=== PATIENT | male | born 1945 | race Asian ===

== ENCOUNTER 2023-08-12 13:48 | Inpatient (IN) | payer MEDICARE ==
[~2023-08-12] VITALS: Ht 175.3 cm; Wt 112.5 kg
[2023-08-12 13:50] VITALS: BP_SYST 140; PULSE 113; RESP 30; TEMP 97.5; O2SAT 98
[2023-08-12 14:21] LABS: BASOPHILS # (AUTO) 0.1 K/uL (0.0-0.2); BASOPHILS % (AUTO) 0.7 % (0.0-2.0); EOSINOPHILS # (AUTO) 0.2 K/uL (0.0-0.4); EOSINOPHILS % (AUTO) 2.2 % (0.0-4.0); HEMOGLOBIN 16.3 g/dL (14.0-18.0); LYMPHOCYTES # (AUTO) 1.5 K/uL (1.0-5.5); LYMPHOCYTES % (AUTO) 18.6 % (20.5-51.5); MEAN CORPUSCULAR HEMOGLOBIN 27 pg (27-31); MEAN CORPUSCULAR HGB CONC 32 % (32-36); MEAN CORPUSCULAR VOLUME 84 fL (79.0-98.0); MONOCYTES # (AUTO) 0.2 K/uL (0.0-1.0); MONOCYTES % (AUTO) 2.2 % (1.7-9.3); NEUTROPHILS # (AUTO) 6.2 K/uL (1.8-7.7); NEUTROPHILS % (AUTO) 76.3 % (40.0-70.0); PLATELET COUNT (AUTO) 274 K/uL (130-430); RED BLOOD CELL COUNT(AUTO) 6.11 MIL/uL (4.2-6.2); RED CELL DISTRIBUTION WIDTH 19.9 % (9.0-15.0); WHITE BLOOD COUNT (AUTO) 8.1 K/uL (4.8-10.8)
[2023-08-12 14:48] LABS: ABG O2 SAT% ESTIMATE 99.4 % (94.0-100.0); BLOOD GAS BASE EXCESS -2.4 mmol/L (-3.0-3.0); BLOOD GAS HCO3 22.7 mmol/L (21.0-27.0); BLOOD GAS PCO2 40.4 mmHg (32.0-45.0); BLOOD GAS PH 7.368 (7.350-7.450); BLOOD GAS PO2 208.7 mmHg (75.0-100.0)
[2023-08-12 14:53] LABS: ALLEN'S TEST POSITIVE (P)
[2023-08-12] MEDS ORDERED: NITROGLYCERIN 1 INCH (GM) OINT. TP ONE (15:00)
[2023-08-12 15:01] LABS: INFLUENZA TYPE A Negative (NEGATIVE); INFLUENZA TYPE B NEGATIVE (NEGATIVE)
[2023-08-12 15:15] LABS: INR 1.9 (0.80-1.20); PROTHROMBIN TIME 19.5 SECS (9.5-12.5)
[2023-08-12 15:17] LABS: ANION GAP 8 (5-15); CARBON DIOXIDE 29 mmol/L (23-29); CHLORIDE 103 mmol/L (98-107); CREATININE 1.34 mg/dL (0.55-1.30); GLUCOSE 152 mg/dL (74-106); POTASSIUM 4.3 mmol/L (3.5-5.1); SODIUM SERUM 140 mmol/L (136-145); UREA NITROGEN, BLOOD 20 mg/dL (8-21)
[2023-08-12 15:33] LABS: ALANINE AMINOTRANSFERASE 29 U/L (12-78); ALBUMIN 2.4 g/dL (3.4-4.8); ASPARTATE AMINOTRANSFERASE 57 U/L (10-37); TOTAL BILIRUBIN 3.5 mg/dL (0.0-1.0); TOTAL PROTEIN, SERUM 8.5 g/dL (6.4-8.3)
[2023-08-12] MEDS ORDERED: ASPIRIN 81 MG TAB.CHEW PO ONE (15:45)
[2023-08-12] MEDS ORDERED: OMEP-268 PO (16:57)
[2023-08-12] MEDS ORDERED: OMEG100037 PO (16:57)
[2023-08-12] MEDS ORDERED: ATEN50TA PO (16:57)
[2023-08-12] MEDS ORDERED: FURO40TA5 PO (16:57)
[2023-08-12] MEDS ORDERED: LIP20 PO (16:57)
[2023-08-12] MEDS ORDERED: ONDANSETRON HCL 4 MG/2 ML VIAL IVP PRN (17:15)
[2023-08-12] MEDS ORDERED: POTASSIUM CHLORIDE 20 MEQ TAB.PRT.SR PO PRN (17:15)
[2023-08-12] MEDS ORDERED: ZOLPIDEM TARTRATE 5 MG TABLET PO PRN (17:15)
[2023-08-12] MEDS ORDERED: DOCUSATE SODIUM 100 MG CAPSULE PO PRN (17:15)
[2023-08-12] MEDS ORDERED: ACETAMINOPHEN 325 MG TABLET PO PRN (17:15)
[2023-08-12] MEDS ORDERED: MAGNESIUM SULFATE 50 ML IV PRN (17:15)
[2023-08-12] MEDS ORDERED: LORazepam 2 MG/ML VIAL IVP PRN (17:15)
[2023-08-12] MEDS ORDERED: MORPHINE 2 MG/ML INJ. SYRINGE IVP PRN ×2 (17:15)
[2023-08-12] MEDS ORDERED: MUPIROCIN 2% TOPICAL OINTMENT 22 GM NS PRN (17:15)
[2023-08-12] MEDS ORDERED: METOPROLOL TARTRATE 25 MG TABLET PO ONE (17:30)
[2023-08-12] MEDS ORDERED: WARF1TAB79 PO (17:30)
[2023-08-12] MEDS ORDERED: FUROSEMIDE 40 MG/4 ML VIAL IVP ONE (17:30)
[2023-08-12] MEDS ORDERED: WARFARIN SODIUM 1 MG TABLET PO ONE (18:30)
[2023-08-12 18:35] VITALS: BP_SYST 99; PULSE 114; RESP 20; TEMP 99.1; O2SAT 95
[2023-08-12 20:00] VITALS: BP_SYST 87; PULSE 106; RESP 22; TEMP 97.6; O2SAT 90
[2023-08-12 20:02] VITALS: O2SAT 90
[2023-08-12 20:06] VITALS: BP_SYST 97; PULSE 102; O2SAT 98
[2023-08-12] MEDS: METOPROLOL TARTRATE 25 MG TABLET PO SCH (21:00)
[2023-08-13] VITALS (11 sets, daily range): BP systolic 87–114; PULSE 73–112; RESP 18–20; TEMP 96.9–99.5; O2SAT 91–99
[2023-08-13 04:23] LABS: BASOPHILS % (AUTO) 0.1 % (0.0-2.0); EOSINOPHILS % (AUTO) 0.1 % (0.0-4.0); HEMATOCRIT 44.3 % (36-54); HEMOGLOBIN 13.9 g/dL (14.0-18.0); LYMPHOCYTES # (AUTO) 0.5 K/uL (1.0-5.5); LYMPHOCYTES % (AUTO) 3.3 % (20.5-51.5); MEAN CORPUSCULAR HEMOGLOBIN 26 pg (27-31); MEAN CORPUSCULAR HGB CONC 31 % (32-36); MEAN CORPUSCULAR VOLUME 82 fL (79.0-98.0); MONOCYTES # (AUTO) 1.2 K/uL (0.0-1.0); MONOCYTES % (AUTO) 7.4 % (1.7-9.3); NEUTROPHILS # (AUTO) 14.4 K/uL (1.8-7.7); NEUTROPHILS % (AUTO) 89.1 % (40.0-70.0); PLATELET COUNT (AUTO) 168 K/uL (130-430); RED BLOOD CELL COUNT(AUTO) 5.39 MIL/uL (4.2-6.2); RED CELL DISTRIBUTION WIDTH 19.7 % (9.0-15.0); WHITE BLOOD COUNT (AUTO) 16.1 K/uL (4.8-10.8)
[2023-08-13 04:31] LABS: ANION GAP 8 (5-15); CARBON DIOXIDE 30 mmol/L (23-29); CHLORIDE 101 mmol/L (98-107); POTASSIUM 4.6 mmol/L (3.5-5.1); SODIUM SERUM 139 mmol/L (136-145)
[2023-08-13 04:38] LABS: INR 2.5 (0.80-1.20); PROTHROMBIN TIME 24.5 SECS (9.5-12.5)
[2023-08-13 05:04] LABS: CALCIUM 8.8 mg/dL (8.4-11.0); CREATININE 1.77 mg/dL (0.55-1.30); GLUCOSE 115 mg/dL (74-106); UREA NITROGEN, BLOOD 28 mg/dL (8-21)
[2023-08-13] MEDS ORDERED: NACL 0.9% 1,000 ML IV SCH (07:00)
[2023-08-13] MEDS ORDERED: NS 500 ML IV ONE (07:00)
[2023-08-13] MEDS ORDERED: MAGNESIUM SULFATE 50 ML IV ONE (07:45)
[2023-08-13] MEDS: ATORVASTATIN 20 MG TABLET PO SCH (08:23)
[2023-08-13] MEDS: METOPROLOL TARTRATE 25 MG TABLET PO SCH (08:26)
[2023-08-13] MEDS ORDERED: FUROSEMIDE 40 MG/4 ML VIAL IVP ONE ×2 (09:00→13:30)
[2023-08-13] MEDS: FUROSEMIDE 40 MG/4 ML VIAL IVP SCH (17:38)
[2023-08-13] MEDS ORDERED: WARFARIN SODIUM 1 MG TABLET PO ONE (18:00)
[2023-08-14] VITALS (10 sets, daily range): BP systolic 94–114; PULSE 68–109; RESP 18–22; TEMP 98–99.5; O2SAT 90–97
[2023-08-14 06:01] LABS: BASOPHILS # (AUTO) 0.1 K/uL (0.0-0.2); EOSINOPHILS % (AUTO) 0.2 % (0.0-4.0); HEMATOCRIT 48.2 % (36-54); HEMOGLOBIN 15.1 g/dL (14.0-18.0); LYMPHOCYTES # (AUTO) 0.3 K/uL (1.0-5.5); LYMPHOCYTES % (AUTO) 3.1 % (20.5-51.5); MEAN CORPUSCULAR HEMOGLOBIN 26 pg (27-31); MEAN CORPUSCULAR HGB CONC 31 % (32-36); MEAN CORPUSCULAR VOLUME 83 fL (79.0-98.0); MONOCYTES # (AUTO) 0.4 K/uL (0.0-1.0); MONOCYTES % (AUTO) 4.5 % (1.7-9.3); NEUTROPHILS # (AUTO) 9.1 K/uL (1.8-7.7); NEUTROPHILS % (AUTO) 91.2 % (40.0-70.0); PLATELET COUNT (AUTO) 127 K/uL (130-430); RED BLOOD CELL COUNT(AUTO) 5.83 MIL/uL (4.2-6.2); RED CELL DISTRIBUTION WIDTH 19.3 % (9.0-15.0); WHITE BLOOD COUNT (AUTO) 9.9 K/uL (4.8-10.8)
[2023-08-14 06:31] LABS: ANION GAP 11 (5-15); CALCIUM 9.2 mg/dL (8.4-11.0); CARBON DIOXIDE 25 mmol/L (23-29); CHLORIDE 97 mmol/L (98-107); CREATININE 1.49 mg/dL (0.55-1.30); GLUCOSE 123 mg/dL (74-106); POTASSIUM 4.2 mmol/L (3.5-5.1); SODIUM SERUM 133 mmol/L (136-145); UREA NITROGEN, BLOOD 36 mg/dL (8-21)
[2023-08-14] MEDS: FUROSEMIDE 40 MG/4 ML VIAL IVP SCH ×2 (06:31→18:57)
[2023-08-14] MEDS: ATORVASTATIN 20 MG TABLET PO SCH (09:06)
[2023-08-14 09:35] LABS: INR 3.8 (0.80-1.20); PROTHROMBIN TIME 37.4 SECS (9.5-12.5)
[2023-08-14] MEDS ORDERED: WARFARIN SODIUM 1 MG TABLET PO SCH (18:00)
[2023-08-15] VITALS (12 sets, daily range): BP systolic 108–122; PULSE 91–105; RESP 16–21; TEMP 98.1–99.3; O2SAT 92–100
[2023-08-15 05:31] LABS: ANION GAP 9 (5-15); BASOPHILS % (AUTO) 0.1 % (0.0-2.0); CALCIUM 8.8 mg/dL (8.4-11.0); CARBON DIOXIDE 27 mmol/L (23-29); CHLORIDE 96 mmol/L (98-107); CREATININE 1.23 mg/dL (0.55-1.30); EOSINOPHILS % (AUTO) 0.2 % (0.0-4.0); GLUCOSE 113 mg/dL (74-106); HEMATOCRIT 42.3 % (36-54); HEMOGLOBIN 13.5 g/dL (14.0-18.0); LYMPHOCYTES # (AUTO) 0.4 K/uL (1.0-5.5); LYMPHOCYTES % (AUTO) 4.4 % (20.5-51.5); MEAN CORPUSCULAR HEMOGLOBIN 26 pg (27-31); MEAN CORPUSCULAR HGB CONC 32 % (32-36); MEAN CORPUSCULAR VOLUME 81 fL (79.0-98.0); MONOCYTES # (AUTO) 0.8 K/uL (0.0-1.0); MONOCYTES % (AUTO) 8.5 % (1.7-9.3); NEUTROPHILS % (AUTO) 86.8 % (40.0-70.0); PLATELET COUNT (AUTO) 126 K/uL (130-430); POTASSIUM 3.7 mmol/L (3.5-5.1); RED BLOOD CELL COUNT(AUTO) 5.22 MIL/uL (4.2-6.2); SODIUM SERUM 132 mmol/L (136-145); UREA NITROGEN, BLOOD 32 mg/dL (8-21); WHITE BLOOD COUNT (AUTO) 9.2 K/uL (4.8-10.8)
[2023-08-15 06:17] LABS: INR 3.9 (0.80-1.20)
[2023-08-15] MEDS: FUROSEMIDE 40 MG/4 ML VIAL IVP SCH ×2 (06:52→17:49)
[2023-08-15] MEDS: ATORVASTATIN 20 MG TABLET PO SCH (08:38)
[2023-08-16] VITALS (9 sets, daily range): BP systolic 92–109; PULSE 75–101; RESP 18–20; TEMP 97.5–98.9; O2SAT 91–100
[2023-08-16 05:33] LABS: BASOPHILS % (AUTO) 0.1 % (0.0-2.0); EOSINOPHILS # (AUTO) 0.1 K/uL (0.0-0.4); EOSINOPHILS % (AUTO) 1.4 % (0.0-4.0); HEMATOCRIT 43.9 % (36-54); HEMOGLOBIN 13.8 g/dL (14.0-18.0); LYMPHOCYTES # (AUTO) 0.5 K/uL (1.0-5.5); LYMPHOCYTES % (AUTO) 7.7 % (20.5-51.5); MEAN CORPUSCULAR HEMOGLOBIN 25 pg (27-31); MEAN CORPUSCULAR HGB CONC 31 % (32-36); MEAN CORPUSCULAR VOLUME 81 fL (79.0-98.0); MONOCYTES % (AUTO) 14.1 % (1.7-9.3); NEUTROPHILS # (AUTO) 5.3 K/uL (1.8-7.7); NEUTROPHILS % (AUTO) 76.7 % (40.0-70.0); PLATELET COUNT (AUTO) 113 K/uL (130-430); RED BLOOD CELL COUNT(AUTO) 5.44 MIL/uL (4.2-6.2); RED CELL DISTRIBUTION WIDTH 19.3 % (9.0-15.0); WHITE BLOOD COUNT (AUTO) 6.9 K/uL (4.8-10.8)
[2023-08-16] MEDS: FUROSEMIDE 40 MG/4 ML VIAL IVP SCH ×2 (05:36→17:17)
[2023-08-16 05:57] LABS: ANION GAP 8 (5-15); CALCIUM 8.6 mg/dL (8.4-11.0); CARBON DIOXIDE 27 mmol/L (23-29); CHLORIDE 97 mmol/L (98-107); GLUCOSE 99 mg/dL (74-106); POTASSIUM 3.5 mmol/L (3.5-5.1); SODIUM SERUM 132 mmol/L (136-145); UREA NITROGEN, BLOOD 28 mg/dL (8-21)
[2023-08-16 06:30] LABS: INR 4.6 (0.80-1.20)
[2023-08-16] MEDS: ATORVASTATIN 20 MG TABLET PO SCH (09:01)
[2023-08-16] MEDS ORDERED: SILDENAFIL CITRATE 20 MG TABLET PO ONE (15:45)
[2023-08-16] MEDS: SILDENAFIL CITRATE 20 MG TABLET PO SCH (21:06)
[2023-08-17] VITALS (10 sets, daily range): BP systolic 95–107; PULSE 76–100; RESP 16–20; TEMP 97.5–98.4; O2SAT 89–95
[2023-08-17 06:27] LABS: ANION GAP 5 (5-15); CALCIUM 8.7 mg/dL (8.4-11.0); CARBON DIOXIDE 30 mmol/L (23-29); CHLORIDE 94 mmol/L (98-107); CREATININE 1.15 mg/dL (0.55-1.30); GLUCOSE 97 mg/dL (74-106); POTASSIUM 3.3 mmol/L (3.5-5.1); SODIUM SERUM 129 mmol/L (136-145); UREA NITROGEN, BLOOD 27 mg/dL (8-21)
[2023-08-17] MEDS: FUROSEMIDE 40 MG/4 ML VIAL IVP SCH ×3 (06:29→16:54)
[2023-08-17 06:36] LABS: BASOPHILS % (AUTO) 0.4 % (0.0-2.0); EOSINOPHILS # (AUTO) 0.1 K/uL (0.0-0.4); EOSINOPHILS % (AUTO) 2.2 % (0.0-4.0); HEMATOCRIT 43.1 % (36-54); HEMOGLOBIN 13.8 g/dL (14.0-18.0); LYMPHOCYTES # (AUTO) 0.6 K/uL (1.0-5.5); LYMPHOCYTES % (AUTO) 9.4 % (20.5-51.5); MEAN CORPUSCULAR HEMOGLOBIN 26 pg (27-31); MEAN CORPUSCULAR HGB CONC 32 % (32-36); MEAN CORPUSCULAR VOLUME 80 fL (79.0-98.0); MONOCYTES % (AUTO) 15.1 % (1.7-9.3); NEUTROPHILS % (AUTO) 72.9 % (40.0-70.0); PLATELET COUNT (AUTO) 136 K/uL (130-430); RED BLOOD CELL COUNT(AUTO) 5.37 MIL/uL (4.2-6.2); RED CELL DISTRIBUTION WIDTH 18.8 % (9.0-15.0); WHITE BLOOD COUNT (AUTO) 6.8 K/uL (4.8-10.8)
[2023-08-17 06:42] LABS: PROTHROMBIN TIME 29.9 SECS (9.5-12.5)
[2023-08-17] MEDS: ATORVASTATIN 20 MG TABLET PO SCH (08:32)
[2023-08-17] MEDS: SILDENAFIL CITRATE 20 MG TABLET PO SCH ×3 (08:32→21:24)
[2023-08-17] MEDS ORDERED: TOLVAPTAN Non-Formulary 15 MG TABLET PO ONE (14:00)
[2023-08-17] MEDS ORDERED: metOLazone 5 MG TABLET PO ONE (14:15)
[2023-08-18] VITALS (9 sets, daily range): BP systolic 102–115; PULSE 73–98; RESP 20–22; TEMP 97.2–97.5; O2SAT 92–96
[2023-08-18 05:36] LABS: INR 2.6 (0.80-1.20); PROTHROMBIN TIME 26.2 SECS (9.5-12.5)
[2023-08-18 05:49] LABS: ALANINE AMINOTRANSFERASE 18 U/L (12-78); ALBUMIN 1.8 g/dL (3.4-4.8); ANION GAP 8 (5-15); ASPARTATE AMINOTRANSFERASE 34 U/L (10-37); CARBON DIOXIDE 31 mmol/L (23-29); CHLORIDE 95 mmol/L (98-107); CREATININE 1.18 mg/dL (0.55-1.30); GLUCOSE 93 mg/dL (74-106); SODIUM SERUM 134 mmol/L (136-145); TOTAL BILIRUBIN 4.2 mg/dL (0.0-1.0); TOTAL PROTEIN, SERUM 7.3 g/dL (6.4-8.3); UREA NITROGEN, BLOOD 26 mg/dL (8-21)
[2023-08-18 06:12] LABS: POTASSIUM 2.8 mmol/L (3.5-5.1)
[2023-08-18] MEDS: FUROSEMIDE 40 MG/4 ML VIAL IVP SCH (06:37)
[2023-08-18] MEDS: SILDENAFIL CITRATE 20 MG TABLET PO SCH ×2 (08:42→14:50)
[2023-08-18] MEDS: ATORVASTATIN 20 MG TABLET PO SCH (08:43)
[2023-08-18] MEDS ORDERED: POTASSIUM CHLORIDE 20 MEQ TAB.PRT.SR PO ONE (08:45)
[2023-08-18 11:53] LABS: ANION GAP 7 (5-15); CALCIUM 9.5 mg/dL (8.4-11.0); CARBON DIOXIDE 31 mmol/L (23-29); CHLORIDE 97 mmol/L (98-107); CREATININE 1.35 mg/dL (0.55-1.30); GLUCOSE 119 mg/dL (74-106); POTASSIUM 3.4 mmol/L (3.5-5.1); SODIUM SERUM 135 mmol/L (136-145); UREA NITROGEN, BLOOD 26 mg/dL (8-21)
[2023-08-18] MEDS ORDERED: KCL 20 mEq in 100 mL (PREMIX) 100 ML IV ONE (14:30)
== END 2023-08-18 18:18 | disposition short-term general hospital (02) | DRG 189 ==
LOC: SED 13:48 → STU 17:07
PROVIDERS: ADMIT General Practice; ATTEND General Practice
PROC: 5A09357 Assistance with Respiratory Ventilation, Less than 24 Consecutive Hours, Continuous Positive Airway Pressure (ICD-10-PCS; principal; 2023-08-12)
PROC: 5A09357 Assistance with Respiratory Ventilation, Less than 24 Consecutive Hours, Continuous Positive Airway Pressure (ICD-10-PCS; 2023-08-13)
PROC: 5A09357 Assistance with Respiratory Ventilation, Less than 24 Consecutive Hours, Continuous Positive Airway Pressure (ICD-10-PCS; 2023-08-14)
PROC: 5A0935A Assistance with Respiratory Ventilation, Less than 24 Consecutive Hours, High Flow/Velocity Cannula (ICD-10-PCS; 2023-08-14)
PROC: 5A09357 Assistance with Respiratory Ventilation, Less than 24 Consecutive Hours, Continuous Positive Airway Pressure (ICD-10-PCS; 2023-08-15)
PROC: 5A09357 Assistance with Respiratory Ventilation, Less than 24 Consecutive Hours, Continuous Positive Airway Pressure (ICD-10-PCS; 2023-08-16)
PROC: 5A0935A Assistance with Respiratory Ventilation, Less than 24 Consecutive Hours, High Flow/Velocity Cannula (ICD-10-PCS; 2023-08-16)
PROC: 5A09357 Assistance with Respiratory Ventilation, Less than 24 Consecutive Hours, Continuous Positive Airway Pressure (ICD-10-PCS; 2023-08-17)
PROC: 5A09357 Assistance with Respiratory Ventilation, Less than 24 Consecutive Hours, Continuous Positive Airway Pressure (ICD-10-PCS; 2023-08-18)
DX: J96.21 Acute and chronic respiratory failure with hypoxia (principal); I21.A1 Myocardial infarction type 2; N17.0 Acute kidney failure with tubular necrosis; J44.1 Chronic obstructive pulmonary disease with (acute) exacerbation; E44.0 Moderate protein-calorie malnutrition; I25.10 Atherosclerotic heart disease of native coronary artery without angina pectoris; E80.6 Other disorders of bilirubin metabolism; R74.01 Elevation of levels of liver transaminase levels; I95.9 Hypotension, unspecified; I27.81 Cor pulmonale (chronic); Z20.822 Contact with and (suspected) exposure to COVID-19; D72.829 Elevated white blood cell count, unspecified; E11.9 Type 2 diabetes mellitus without complications; Z66 Do not resuscitate; E66.01 Morbid (severe) obesity due to excess calories; I27.21 Secondary pulmonary arterial hypertension; I11.0 Hypertensive heart disease with heart failure; I48.91 Unspecified atrial fibrillation; Z79.01 Long term (current) use of anticoagulants; Z68.36 Body mass index [BMI] 36.0-36.9, adult; Z79.82 Long term (current) use of aspirin; Z87.891 Personal history of nicotine dependence; I50.9 Heart failure, unspecified
CPT/HCPCS: 36415; 36600; 71045; 76770; 80048; 80053; 82803; 82962; 83037; 83735; 83880; 84484; 85025; 85610-TC; 87081; 93005; 93306; 93923; 94660; 94760; 99291; G0378; J1940; J3475; J3480